=== PATIENT | male | born 1970 | race African-American/Black ===

== ENCOUNTER 2017-05-07 11:59 | Inpatient (IN) ==
[~2017-05-07 11:59] MED LIST: ETOMIDATE 20 MG/10 ML VIAL IV ONE; LIDOCAINE 1% 5 ML VIAL ONE; PHENYLEPHRINE 1 MG/10 ML SYRINGE IV ONE; PHENYLEPHRINE 20 MG/250 ML PREMIX IV ONE; ROCURONIUM 100 MG/10 ML VIAL IV ONE; SUCCINYLCHOLINE 200 MG/10 ML VIAL ONE
[2017-05-07] MEDS ORDERED: KETOROLAC 30 MG/1 ML VIAL IV STA (13:38)
[2017-05-07] MEDS ORDERED: SODIUM CHLORIDE 0.9% 1,000 ML IV STA (13:38)
[2017-05-07] MEDS ORDERED: KETOROLAC 30 MG/1 ML VIAL ONE (13:39)
[2017-05-07] MEDS ORDERED: DEXTROSE 50% 25 GM/50 ML SYRINGE IV ONE ×2 (13:54→16:10)
[2017-05-07] MEDS ORDERED: DEXTROSE 50% 25 GM/50 ML VIAL IV STA ×3 (13:57→16:31)
[2017-05-07 14:08] LABS: ABG Base Excess -11.7 MMOL/L (-2.5-2.5); ABG HCO3 15.2 MMOL/L (20-26); ABG Oxygen Saturation 96.7 % (95-100); ABG PCO2 26.7 MM HG (35-48); ABG PH 7.308 (7.35-7.45); ABG TCO2 12.2 MMOL/L (23-27)
[2017-05-07] MEDS ORDERED: NOREPINEPHRINE 4 MG/4 ML VIAL IV ONE ×2 (14:44→23:07)
[2017-05-07 14:45] LABS: CKMB % 0.5 %; Troponin I Only < 0.015 NG/ML (0.00-0.045)
[2017-05-07] MEDS: NOREPINEPHRINE 4 MG in SODIUM CHLORIDE 0.9% 246 ML IV SCH ×2 (14:45→23:45)
[2017-05-07 14:46] LABS: Albumin 2.1 G/DL (3.4-5.0); Bilirubin,Total 0.5 MG/DL (0.2-1.0); Calcium 8.1 MG/DL (8.5-10.1); Osmolality,Calculated 296.7 MOS/KG (273-304); Potassium 4.7 MMOL/L (3.5-5.1); Total Protein 5.1 G/DL (6.4-8.3)
[2017-05-07] MEDS ORDERED: MORPHINE 2 MG/1 ML SYRINGE ONE (15:03)
[2017-05-07] MEDS ORDERED: ONDANSETRON 4 MG/2 ML VIAL ONE (15:03)
[2017-05-07] MEDS ORDERED: ONDANSETRON 4 MG/2 ML VIAL IV STA (15:13)
[2017-05-07] MEDS ORDERED: MORPHINE 2 MG/1 ML SYRINGE IV STA (15:13)
[2017-05-07 15:34] LABS: Basophils % 0.8 % (0.0-0.8); Eosinophils # 0.1 10*3/uL (0.0-0.87); Eosinophils % 3.1 % (0.00-10.9); Immature Granulocytes % 1.6 %; Immature Granulocytes Absolute 0.06 #; Lymphocytes # 0.4 10*3/uL (1.4-4.0); Lymphocytes % 10.4 % (21.2-54.2); Mean Corpuscular HGB Conc 34.4 GM/DL (32-36); Mean Corpuscular Hemoglobin 31 PG (27-34); Mean Corpuscular Volume 90.4 FL (87-102); Mean Platelet Volume 10.7 FL (9.6-12.0); Monocytes # 0.2 10*3/uL (0.11-0.8); Monocytes % 5.4 % (1.7-12.7); NRBC # 0.03 10*3/uL; Neutrophils % 78.7 % (38.7-73.9); Platelet Count 156 T/CUMM (130-400); Red Blood Count 3.54 MC/CUMM (3.8-5.5); Red Cell Distribution Width 13.3 % (9.3-17.3); White Blood Count 3.9 T/CUMM (4-12)
[2017-05-07] MEDS ORDERED: cefTRIAXone 1,000 MG VIAL ONE (15:58)
[2017-05-07] MEDS ORDERED: cefTRIAXone 1,000 MG in SODIUM CHLORIDE 0.9% 100 ML IV STA (16:03)
[2017-05-07] MEDS ORDERED: VANCOMYCIN 1,000 MG VIAL ONE (16:10)
[2017-05-07] MEDS ORDERED: DEXTROSE 5% NACL 0.45% 1,000 ML IV SCH (16:30)
[2017-05-07] MEDS ORDERED: VANCOMYCIN INJ 1,000 MG in SODIUM CHLORIDE 0.9% 250 ML IV STA (16:30)
[2017-05-07] MEDS ORDERED: ONDANSETRON 4 MG/2 ML VIAL IV PRN (17:30)
[2017-05-07] MEDS ORDERED: ACETAMINOPHEN 325 MG TABLET PO PRN (17:30)
[2017-05-07] MEDS ORDERED: DEXTROSE 5% 1,000 ML IV SCH (17:30)
[2017-05-07] MEDS ORDERED: ALBUTEROL 2.5 MG/3 ML NEB RESP TX PRN (17:30)
[2017-05-07] MEDS ORDERED: DEXTROSE 5% NACL 0.9% 1,000 ML IV SCH (18:30)
[2017-05-07 18:35] LABS: Amorphous Crystals,Urine Occasional /HPF (Few); Apearance,Urine Slightly Hazy (Clear); Bilirubin,Urine Negative (Negative); Blood, Urine Large mg/dL (Negative); Glucose,Urine (UA) Negative (Negative); Ketones,Urine Negative (Negative); Nitrite,Urine Negative (Negative); Protein,Urine 30 MG/DL; RBC,Urine 3 /HPF (0-4); Urine Color Yellow (Yellow); Urine Urobilinogen < 2.0 EU/DL (0.2-1.0); WBC,Urine <1 /HPF (0-6)
[2017-05-07] MEDS ORDERED: PIPERACILLIN/TAZOBACTAM 3,375 MG in SODIUM CHLORIDE 0.9% 100 ML IV SCH (21:00)
[2017-05-07] MEDS: PHENYLEPHRINE DRIP 40 MG/250 ML PREMIX IV SCH ×2 (21:18→23:45)
[2017-05-07] MEDS ORDERED: HEPARIN/NACL 0.9% 2 UNITS/ML 500 ML IV ONE (22:55)
[2017-05-07] MEDS ORDERED: EPINEPHrine 1 MG/ML VIAL ONE (23:04)
[2017-05-07 23:19] LABS: Troponin I Only 0.276 NG/ML (0.00-0.045)
[2017-05-07] MEDS ORDERED: PHENYLEPHRINE DRIP 20 MG/250 ML PREMIX IV ONE (23:27)
[2017-05-07] MEDS ORDERED: fentaNYL 100 MCG/2 ML VIAL ONE (23:28)
[2017-05-07] MEDS ORDERED: SUCCINYLCHOLINE 200 MG/10 ML VIAL ONE (23:28)
[2017-05-07] MEDS ORDERED: MIDAZOLAM 2 MG/2 ML VIAL ONE (23:28)
[2017-05-07] MEDS ORDERED: ROCURONIUM 100 MG/10 ML VIAL IV ONE (23:28)
[2017-05-07] MEDS ORDERED: ETOMIDATE 40 MG/20 ML VIAL IV ONE (23:28)
[2017-05-07 23:35] LABS: ABG Base Excess -17.9 MMOL/L (-2.5-2.5); ABG HCO3 11.1 MMOL/L (20-26); ABG Oxygen Saturation 98.8 % (95-100); ABG PCO2 43.8 MM HG (35-48); ABG TCO2 11.8 MMOL/L (23-27)
[2017-05-07 23:40] LABS: ABG PH 7.052 (7.35-7.45)
[2017-05-08] MEDS ORDERED: PROPOFOL 1,000 MG/100 ML BOTTLE IV SCH (00:30)
[2017-05-08] MEDS ORDERED: DEXTROSE 50% 25 GM/50 ML VIAL IV ONE (00:35)
[2017-05-08] MEDS ORDERED: DEXTROSE 50% 25 GM/50 ML VIAL IV PRN (00:42)
[2017-05-08] MEDS: PHENYLEPHRINE DRIP 40 MG/250 ML PREMIX IV SCH ×2 (00:43→02:45)
[2017-05-08] MEDS ORDERED: EPINEPHrine 1 MG/ML VIAL ONE (00:46)
[2017-05-08] MEDS ORDERED: SODIUM BICARBONATE 50 MEQ/50 ML VIAL IV ONE ×3 (00:54→01:33)
[2017-05-08] MEDS ORDERED: SODIUM BICARBONATE 50 MEQ/50 ML SYRINGE IV ONE ×2 (00:55→01:02)
[2017-05-08 01:00] LABS: ABG Base Excess -16.4 MMOL/L (-2.5-2.5); ABG Oxygen Saturation 97.2 % (95-100); ABG PCO2 46.3 MM HG (35-48); ABG PH 7.068 (7.35-7.45)
[2017-05-08] MEDS ORDERED: KETAMINE 500 MG/10 ML VIAL IV PRN (01:08)
[2017-05-08] MEDS ORDERED: fentaNYL 100 MCG/2 ML VIAL IV PRN ×2 (01:09→01:12)
[2017-05-08 01:21] LABS: Basophils % 0.5 % (0.0-0.8); Eosinophils % 0.5 % (0.00-10.9); Hematocrit 25.6 VOL% (42.0-52.0); Hemoglobin 8.8 GM/DL (14.0-18.0); Immature Granulocytes % 8.1 %; Immature Granulocytes Absolute 0.17 #; Lymphocytes # 0.3 10*3/uL (1.4-4.0); Lymphocytes % 14.3 % (21.2-54.2); Mean Corpuscular HGB Conc 34.4 GM/DL (32-36); Mean Corpuscular Hemoglobin 31 PG (27-34); Mean Corpuscular Volume 88.9 FL (87-102); Mean Platelet Volume 11.3 FL (9.6-12.0); Monocytes # 0.1 10*3/uL (0.11-0.8); Monocytes % 2.4 % (1.7-12.7); NRBC # 0.09 10*3/uL; Neutrophils # 1.6 10*3/uL (1.4-7.4); Neutrophils % 74.2 % (38.7-73.9); Platelet Count 109 T/CUMM (130-400); Red Blood Count 2.88 MC/CUMM (3.8-5.5); Red Cell Distribution Width 13.7 % (9.3-17.3); White Blood Count 2.1 T/CUMM (4-12)
[2017-05-08] MEDS ORDERED: VASOPRESSIN 20 UNITS/ML VIAL ONE (01:21)
[2017-05-08 01:29] LABS: INR 1.2; PT Patient Result 12.8 SECS
[2017-05-08 01:30] LABS: Partial Thromboplastin Time 44.5 SECS (0-40)
[2017-05-08] MEDS ORDERED: SODIUM BICARB INJ 150 MEQ in STERILE WATER INJ 850 ML IV SCH (01:30)
[2017-05-08] MEDS ORDERED: GENTAMICIN INJ 240 MG in SODIUM CHLORIDE 0.9% 100 ML IV SCH (01:30)
[2017-05-08] MEDS: NOREPINEPHRINE 4 MG in SODIUM CHLORIDE 0.9% 246 ML IV SCH (01:30)
[2017-05-08] MEDS ORDERED: LEVOFLOXACIN INJ 750 MG in PREMIX 1 EACH IV SCH (01:30)
[2017-05-08] MEDS ORDERED: VASOPRESSIN 100 UNITS in SODIUM CHLORIDE 0.9% 95 ML IV SCH (01:30)
[2017-05-08] MEDS ORDERED: DEXTROSE 10% 1,000 ML IV SCH (01:30)
[2017-05-08 01:32] LABS: ABG Base Excess -13.2 MMOL/L (-2.5-2.5); ABG HCO3 17.2 MMOL/L (20-26); ABG Oxygen Saturation 98.2 % (95-100); ABG PCO2 66.1 MM HG (35-48); ABG PO2 145.2 MM HG (80-95); ABG TCO2 19.3 MMOL/L (23-27)
[2017-05-08 01:34] LABS: ABG PH 7.034 (7.35-7.45)
[2017-05-08] MEDS ORDERED: GENTAMICIN 80 MG/2 ML VIAL ONE (01:40)
[2017-05-08 01:47] LABS: Lactic Acid 7.4 MMOL/L (0.4-2.0)
[2017-05-08 01:52] LABS: Calcium 6.8 MG/DL (8.5-10.1); Magnesium 1.8 MG/DL (1.8-2.4)
[2017-05-08 01:58] LABS: Blood Urea Nitrogen 79 MG/DL (7-18); Calcium 6.6 MG/DL (8.5-10.1); Cholesterol < 50 MG/DL (50-200); Glucose 108 MG/DL (74-106); HDL Cholesterol 13 MG/DL (40-60); Osmolality,Calculated 307.1 MOS/KG (273-304); Risk Ratio 3.85; Sodium 142 MMOL/L (136-145); Thyroid Stimulating Hormone 0.624 uIU/ml (0.358-3.74); Triglycerides 91 MG/DL (2-150); VLDL CHOLESTEROL 18.2 MG/DL
[2017-05-08 02:04] LABS: Potassium 6.8 MMOL/L (3.5-5.1)
[2017-05-08 02:05] LABS: Potassium 6.8 MMOL/L (3.5-5.1)
[2017-05-08 02:20] LABS: Troponin I Only 0.466 NG/ML (0.00-0.045)
[2017-05-08 02:28] LABS: ABG Base Excess -11.8 MMOL/L (-2.5-2.5); ABG Oxygen Saturation 93.1 % (95-100); ABG PCO2 46.5 MM HG (35-48); ABG TCO2 15.8 MMOL/L (23-27)
[2017-05-08 02:29] LABS: ABG PH 7.157 (7.35-7.45)
[2017-05-08] MEDS ORDERED: NOREPINEPHRINE 8 MG in SODIUM CHLORIDE 0.9% 242 ML IV SCH (02:30)
[2017-05-08 06:13] VITALS: BP 62/30
[2017-05-08 08:39] LABS: Band Neutrophils 14 % (0-10); Hypochromasia 1+; Lymphocytes 7 % (20-55); Myelocytes 2 %; Segmented Neutrophils 76 % (50-85); Total Cells Counted 100
[2017-05-08 08:40] LABS: Microcytosis Slight; Platelet Estimate Adequate
[2017-05-08 08:52] LABS: Band Neutrophils 10 % (0-10); Hypochromasia 1+; Lymphocytes 15 % (20-55); Microcytosis 1+; Nucleated Red Blood Cells 2 (0-5); Segmented Neutrophils 70 % (50-85); Total Cells Counted 100
[2017-05-08 08:53] LABS: Platelet Estimate Decreased; Target Cells Slight
[2017-05-08] MEDS ORDERED: PANTOPRAZOLE 40 MG TABLET PO SCH (09:00)
[2017-05-08] MEDS ORDERED: VANCOMYCIN INJ 1,500 MG in SODIUM CHLORIDE 0.9% 500 ML IV SCH (16:00)
== END 2017-05-08 04:11 | disposition expired | DRG 853 ==
LOC: N.ED 11:59 → N.EDINP 16:12 → N.ICU 17:01
PROVIDERS: ADMIT Internal Medicine; ATTEND Internal Medicine